=== PATIENT | male | born 1990 | race Hispanic/Latino ===

== ENCOUNTER 2018-01-15 22:31 | Emergency (ER) | payer OTHER ==
[2018-01-15] MEDS ORDERED: Adacel (T-DAP) 0.5 ML VIAL ONE (22:51)
[2018-01-15] MEDS ORDERED: Lidocaine 1% w/Epinephrine 1:100K 30 ML VIAL ONE (22:57)
--- NOTE | 2018-01-15 23:19 | RAD ---
FOUR VIEWS OF THE LEFT FORELE01/15/18 INDICATION: History of left leg laceration. Fell out of car and cut the left leg one hour prior to arrival. FINDINGS: There is soft tissue gas involving the proximal medial aspect of the left forearm consistent with the patient's history of laceration. No radiopaque foreign body is evident. No acute fracture or subluxa tion is evident. IMPRESSION: Left leg laceration. No radiopaque foreign body or acute osseous abnormality. POS: [facility]
[2018-01-15] MEDS ORDERED: Bacitracin Zinc 1 Packet ONE (23:44)
[2018-01-15] MEDS ORDERED: Amoxicillin/Potassium Clav 875 MG TAB ONE (23:58)
[2018-01-16] MEDS ORDERED: traMADol HCl 50 MG TAB ONE (00:04)
== END 2018-01-16 00:15 | disposition home or self-care (01) ==
LOC: NAV ERS 22:31
DX: S81.812A Laceration without foreign body, left lower leg, initial encounter (principal); W22.8XXA Striking against or struck by other objects, initial encounter; Z23 Encounter for immunization
CPT/HCPCS: 12042; 80305; 90471; 90715; G0477; J2001